=== PATIENT | female | born 1975 | race Caucasian/White ===

== ENCOUNTER 2019-05-31 08:40 | Day surgery (SDC) | payer OTHER, MEDICAID, SELFPAY ==
[2019-05-29 15:03] VITALS: BMI 22.4
[2019-05-31] VITALS (8 sets, daily range): BP systolic 108–129; BP diastolic 69–88; PULSE 57–90; RESP 14–18; TEMP 36–36.5; O2SAT 93–100; BMI 22.4
--- NOTE | 2019-05-31 | PATH_ITS ---
[facility] Accession Number: [id number] . 01 Material submitted: . endometrium - ENDOMETRIAL CURETTINGS . 02 Diagnosis: Endometrial Curettings: Portions of proliferative endometrium with patchy glandular crowding; negative for glandular hyperplasia, cytologic atypia, and malignancy. MRV 06/01/2019 1110 Local . 02 Electronically signed: . Corinne Sanabria MD, Pathologist NPI- [id number] . 01 Gross description: . ENDOMETRIAL CURETTINGS: Received in formalin are minute fragments of mucoid and hemorrhagic material measuring 2.5 x 1.0 x 0.2 cm in aggregate. Submitted in toto in 2 cassettes. /QBJ 05/31/20192007 Local . 02 Pathologist provided ICD-10: N84.0 . 02 CPT . 122004 Performed at: 01 [facility] [address] [id number] MD Dawson Benz MD Phone: [phone] Performed at: 02 [facility] [address] [place], [place] [id number] MD Jeannie Cruz MD Phone: [phone]
[2019-05-31] MEDS: LACTATED RINGERS 1,000 ML 42 ML IV (09:23)
--- NOTE | 2019-05-31 09:43 | PM.HP.1 ---
History of Present Illness History of Present Illness Date Patient Seen: 05/31/19 Time Patient Seen: 09:43 Chief complaint: [id number] Narrative: Patient is a 44-year-old 2 para 2 who presents for a D&C hysteroscopy with polypectomy due to menorrhagia and endometrial polyp Patient History Medical History (Updated 05/29/19 @ 15:09 by Jyoti Diaz RN) Anxiety (Chronic) Chicken pox (Resolved) Endometrial polyp (Acute) Fibroids (Chronic) Heavy menstrual period (Chronic ~2008) Irregular menstrual cycle (Chronic ~2008) Vision disorder (Chronic) Surgical History (Updated 05/28/19 @ 20:57 by Doreen Parada) Anesthesia (Resolved) History of appendectomy (Resolved ~1988) Vaginal hematoma (Resolved ~2004) Family History (Updated 05/28/19 @ 20:59 by Doreen Parada) Father Hypertension Grandmother Cancer Grandfather History of heart disease Grandmother Mental health problem Social History household members: spouse Smoking Status: Never smoker Family & Social History Family History (Updated 05/28/19 @ 20:59 by Doreen Parada) Father Hypertension Grandmother Cancer Grandfather History of heart disease Grandmother Mental health problem Social History: household members spouse Tobacco & Substance use: Smoking Status Never smoker Meds Home Medications and Allergies Home Medications Medication Instructions Recorded Confirmed Type No Known Home Medications 04/05/19 05/31/19 History Allergies Allergy/AdvReac Type Severity Reaction Status Date / Time tetracycline Allergy Unknown Rash Verified 05/31/19 08:58 Exam Vital Signs (past 8 hours): - 05/31/19 09:06 Temperature 97.7 F Pulse Rate 90 Respiratory Rate 18 Blood Pressure 129/88 Pulse Oximetry 100 Oxygen Delivery Method Room Air Narrative Exam Narrative: HEENT: No thyromegaly, no anterior cervical or supraclavicular lymphadenopathy. Lungs:Clear to auscultation bilaterally, no wheezes. Cardiovascular: Regular rate and rhythm, no murmurs, rubs, or gallops. Abdomen: Well-healed scars. No hepatosplenomegaly. No masses palpable. External genitalia: Normal Vagina: Normal Cervix: Normal Bimanual exam: 8 Week size uterus. Mobile. Rectal: No masses. Assessment & Plan Assessment & Plan narrative: Assessment: 44-year-old 2 para 2 with menorrhagia and endometrial polyps Plan: D&C hysteroscopy with polypectomy The risks, benefits, and alternatives to the procedure were explained to the patient. The risks including bleeding, infection, and uterine perforation. The patient understands these risks and agrees to proceed. A full par Q was held and consent form was signed. Time Spent With Patient Time with patient: 15-24 minutes
--- NOTE | 2019-05-31 09:45 | PM.PREOP ---
Pre-operative Note Interval Note History & Physical reviewed/Exam performed by Physician: Yes Changes to H&P: No
--- NOTE | 2019-05-31 10:02 | SUR.OPER ---
Lithotomy on padded OR bed, head on pillow, arms secured on padded arm boards at <90 degrees abduction. Legs secured in padded yellow fins stirrups.
--- NOTE | 2019-06-14 06:19 | PM.GYNOP.1 ---
Operative Date/Time/Diagnoses Date of procedure: 05/31/19 Time of procedure: 11:15 Pre-op diagnosis: Menorrhagia Endometrial polyps Post-op diagnosis: same Procedure & Clinicians Procedure: Procedures Operation Date: 05/31/19 09:45 Actual Procedures Side Surgeon p Hysteroscopy D&C Nancie Mcguire MD Indications: Menorrhagia Endometrial polyp Surgeon: Nancie Mcguire Anesthesia Type: General (LMA) Operative Notes Findings: Eight week size anteverted uterus Both fallopian tube ostia observed No polyps Closure Type: not applicable Specimen(s): endometrial curettings Estimated blood loss (mL): 50 Blood products transfused: none Procedure in detail: After informed consent was obtained, the patient was taken to the operating room where she was placed in the dorsal supine position. After adequate LMA general anesthesia was achieved, she was placed in the dorsal lithotomy position, and prepped and draped in the usual sterile fashion. A time-out was performed. A bimanual exam was performed which revealed an 8 week size anteverted uterus. A bivalve speculum was placed into the vagina. The anterior lip of the cervix was grasped with a single-tooth tenaculum. Cervical os was sequentially dilated until the hysteroscope could pass easily into the endometrial cavity. Initial inspection with the hysteroscope revealed both fallopian tube ostia. There were no polyps. The hysteroscope was removed. Sharp curettage was performed yielding a large amount of endometrial curettings. The instruments were removed from the uterus. The single-tooth tenaculum was removed from the anterior lip of the cervix. The bivalve speculum was removed from the vagina. Sponge, lap, and instrument counts were correct x2. The patient tolerated the procedure well, and was taken to PACU in stable condition. Complications: none Post-operative Condition: stable Disposition: PACU Plan for aftercare: Home after recovery
== END 2019-05-31 11:47 | disposition home or self-care (01) ==
PROVIDERS: Family Provider Nurse Practitioner Family; PCP Family Medicine; Visit Provider Obstetrics & Gynecology
PROC: 0UDB8ZZ Extraction of Endometrium, Via Natural or Artificial Opening Endoscopic (ICD-10-PCS; CPT 58558; principal; 2019-05-31 09:45)
DX: N84.0 Polyp of corpus uteri (principal); N92.0 Excessive and frequent menstruation with regular cycle; F41.9 Anxiety disorder, unspecified
CPT/HCPCS: 58558; J1100; J1885; J2250; J2405; J2704; J3010